=== PATIENT | female | born 1955 | race Caucasian/White ===

== ENCOUNTER 2023-04-17 09:22 | Emergency (ER) | payer MEDICARE, SELFPAY ==
[2023-04-17 09:27] VITALS: BP 135/90
[2023-04-17 10:05] LABS: % Basophils 0.8 % (0-2); % Eosinophils 2.1 % (0-6); % Immature Granulocytes 0.3 % (0-0.5); % Lymphocytes 17.3 % (20.5-51.1); % Monocytes 7.9 % (1.7-9.3); % Neutrophils 71.6 % (42.2-75.2); Absolute Basophils 0.1 10^3/uL (0-0.2); Absolute Eosinophils 0.2 10^3/uL (0-0.7); Absolute Lymphocytes 1.6 10^3/uL (1.2-3.4); Absolute Monocytes 0.7 10^3/uL (0.1-0.6); Absolute Neutrophils 6.4 10^3/uL (1.4-6.5); Hematocrit 44.7 % (37.0-47.0); Hemoglobin 15.6 g/dL (12.0-16.0); Mean Corp Hgb Conc. 34.9 g/dL (33.0-37.0); Mean Corpuscular Hgb 31.7 pg (27.0-31.0); Mean Corpuscular Volume 90.9 fL (81.0-99.0); Mean Platelet Volume 9.4 fL (7.4-10.4); Nucleated Red Blood Cells % 0 %; Platelet Count 244 10^3/uL (130-400); Red Blood Cell Count 4.92 10^6/uL (4.20-5.40); Red Cell Dist. Width 13.2 % (11.5-14.5)
--- NOTE | 2023-04-17 10:15 | ED.GENMED ---
History of Present Illness
General
Chief Complaint: Chest Pain
Source: patient
Time Seen by Provider: 04/17/23 09:36
Travel History
Have you had any contact with someone who has COVID-19?: No
Do you have any symptoms of coronavirus? Fever > 100 degrees, chills, cough, shortness of breath, sore throat, loss of taste or smell, muscle aches, or headache?: No
History of Present Illness
History of Present Illness:
68-year-old female with history hypertension hyperlipidemia and asthma presents complaining of mid chest pain now spreading to the right chest and right shoulder. This is made worse with deep breathing coughing and motion. No recent travel or
surgery. She denies any leg swelling or calf pain. This feels different than her typical asthma discomfort. She tried an inhaler however without relief. She tried Tylenol without significant relief. This is progressively gotten worse over 3
days. No associated fever. Of note she had COVID 2 months ago. No other complaints at this time
Past History
Past History
ED Past Medical History: Asthma, GERD, Hypercholesterolemia, Hypothyroidism, Psychiatric (Anxiety, depression) and Other (Sleep apnea, obesity, diverticulosis, IBS, arthritis, rosacea, anemia)
ED Past Surgical History: Gynecological, Orthopedic and Other (Right parotidectomy)
Social History
Tobacco: Non-smoker
Phy Exam
Physical Exam
Physical Exam:
General: Well-appearing female no acute respiratory distress
HEENT: Normocephalic atraumatic
Heart: Regular rate and rhythm
Lungs: Clear to auscultation bilaterally no wheezing
Musculoskeletal exam: No reproducible tenderness to the palpation of the anterior chest wall
Extremities: No cyanosis or edema calves are nontender
Scores
Heart Score for Chest Pain Patients
STEMI patient?: No
History: Slightly or Non-Suspicious
ECG: Normal
Age: >/= 65 years
Risk Factors: 1 or 2 Risk Factors
Troponin: </= Normal Limit
Heart Score for Chest Pain Patients: 3
Heart Score Risk: 2.5% MACE over next 6 weeks
Course
Orders/Labs/Results
Orders:
Orders
04/17/23 09:27
Electrocardiogram (*1) Urgent
Reason for Study: Chest Pain
EKG- Treatment ONCE
04/17/23 10:01
Complete Blood Count/With Diff Urgent
Comprehensive Metabolic Panel Urgent
D-Dimer Urgent
Lipase Urgent
Troponin I Urgent
04/17/23 10:25
CR Chest - 2 Views Urgent
Comment:
Reason For Exam: chest pain
04/17/23 10:26
Ketorolac [Toradol] 15 mg IV NOW STA
Abnormal Lab Results
04/17/23
10:01
MCH 31.7 H pg
(27.0-31.0)
Absolute Monos (auto) 0.7 H 10^3/uL
(0.1-0.6)
Lymphocytes % 17.3 L %
(20.5-51.1)
D-Dimer 0.60 H ug/mlFEU
(0.00-0.50)
Glucose 128 H mg/dl
(70-99)
04/17/23 10:01
04/17/23 10:01
Vital Signs
Initial and Last Documented VS:
Initial Vital Signs
Temp Pulse Resp BP Pulse Ox
97.7 F 68 16 135/90 98
04/17/23 09:27 04/17/23 09:27 04/17/23 09:27 04/17/23 09:27 04/17/23 09:27
Last Documented Vital Signs
Temp Pulse Resp BP Pulse Ox
97.7 F 64 22 124/70 96
04/17/23 09:27 04/17/23 12:30 04/17/23 12:30 04/17/23 12:00 04/17/23 12:30
MDM/Problems Addressed
Differential Diagnosis Includes:
Patient with chest chest discomfort. This is worse on the right side worse with motion and breathing. No significant PE risk factors. Not hypoxic not tachycardic. Question possible PE versus chest wall strain versus ACS. EKG pending. Will
screen with D-dimer. Currently stable
*Critical Care Note
Total Time (30-74mins, 75-104mins- exclusive of procedures): Not Applicable
Update Note
Update Note:
D-dimer within normal limits for age. Chest x-ray shows atelectasis but no pneumonia or rib fractures. No pneumothorax. Labs reviewed otherwise within normal limits including troponin. Cardiac workup negative. Do not suspect ACS at this point
or PE or dissection suspect more likely chest wall discomfort. She did receive some relief from Toradol. Recommended continued use of NSAIDs at home. Stable for discharge
ED Attending Note
-
Portions of this chart may have been created with voice recognition software.� Occasional wrong word or��sound alike� substitutions may have occurred due to the inherent limitations of voice recognition software.
Discharge Plan
Departure
Patient Disposition: Home (Routine Discharge)
Date of Disposition: 04/17/23
Time of Disposition: 13:43
Patient with high blood pressure during this ER visit?: No
Discharge Problem:
Acute chest wall pain
Instructions: Costochondritis (DC)
Prescriptions:
No Action
Advair 250 mcg/50 mcg
1 puff inhalation BID
Nasacort
1 spray intranasal QPM
Pro-Air Inhaler
2 puff inhalation PRN PRN (Reason: asthma)
acetaminophen 325 MG tablet
650 mg PO Q4HPRN PRN (Reason: mild pain/fever) 0RF
levothyroxine 25 MCG tablet
12.5 mcg PO DAILY AT 0700 0RF
rosuvastatin 5 MG tablet
5 mg PO QPM 0RF
fluticasone propion-salmeterol [Advair HFA] 1 PUFF HFA aerosol inhaler
2 puff inhalation R BID 0RF
fexofenadine [Tammie] 180 MG tablet
180 mg PO DAILY
omeprazole 20 MG capsule,delayed release(DR/EC)
20 mg PO BID
metoprolol succinate 25 mg tablet extended release 24 hr
25 mg PO DAILY Qty: 20 0RF
Referrals:
Radhames Woodson DO [Family Provider] -
Activity Restrictions/Additional Instructions:
Continue with Tylenol or ibuprofen sparingly if needed for pain. Avoid heavy lifting or twisting. Return if worse otherwise follow-up with your family doctor
Interventions
Interventions:
*ED COVID-19 Vaccine History Last Done: 04/17/23 09:27
ED- Cardiac Assessment Last Done: 04/17/23 10:05
[2023-04-17 10:19] LABS: ALT (SGPT) 21 U/L (0-35); AST (SGOT) 26 U/L (14-36); Albumin 4.3 g/dl (3.5-5.0); Alkaline Phosphatase 92 U/L (38-126); Blood Urea Nitrogen 10 mg/dl (7-17); Calcium 9.9 mg/dl (8.4-10.2); Carbon Dioxide 27 mmol/L (22-30); Chloride 107 mmol/L (98-107); Glucose 128 mg/dl (70-99); Lipase 100 U/L (23-300); Potassium 3.8 mmol/L (3.5-5.1); Sodium 138 mmol/L (135-145); Total Bilirubin 0.9 mg/dl (0.2-1.3); Total Protein 6.5 g/dl (6.3-8.2); eGFR > 60.00
[2023-04-17 10:31] LABS: Troponin I < 0.012 ng/ml
[2023-04-17] MEDS: TORADOL 15 MG IV (10:33)
[2023-04-17 10:47] VITALS: BP 126/74
[2023-04-17 11:00] VITALS: BP 124/70
[2023-04-17 12:00] VITALS: BP 124/70
[2023-04-17 13:00] VITALS: BP 126/70
== END 2023-04-17 13:51 | disposition home or self-care (01) ==
LOC: EMR 09:22
PROVIDERS: Physician Assistant; EMERGENCY PHYSICIAN Emergency Medicine; FAMILY PHYSICIAN Family Medicine
DX: R07.89 Other chest pain (principal); I10 Essential (primary) hypertension; E78.00 Pure hypercholesterolemia, unspecified; J45.909 Unspecified asthma, uncomplicated
CPT/HCPCS: 99285; 96374; 71046; 80053; 83690; 84484; 85025; 85379; 93005

== ENCOUNTER 2023-10-12 03:17 | Observation (INO) | payer MEDICARE, SELFPAY ==
[2023-10-12] VITALS (18 sets, daily range): BP systolic 108–145; BP diastolic 56–86; BMI 39.6; BMI 39.9; BMI 39.4
--- NOTE | 2023-10-12 00:33 | ED.GENMED ---
History of Present Illness
General
Chief Complaint: Breathing Problem
Source: patient
Exam Limitations: none
Time Seen by Provider: 10/12/23 00:28
History of Present Illness
History of Present Illness:
68-year-old female presents with shortness of breath. Some tightness in her chest. Symptoms for days. Slightly low oxygen saturations at home. No significant change with nebulizer treatment. No pleuritic pain no fever no cough
Past History
Past History
ED Past Medical History: Asthma, GERD, Hypercholesterolemia, Hypothyroidism, Psychiatric (Anxiety, depression) and Other (Sleep apnea, obesity, diverticulosis, IBS, arthritis, rosacea, anemia)
ED Past Surgical History: Gynecological, Orthopedic and Other (Right parotidectomy)
Social History
Tobacco: Non-smoker
Review of Systems
Review of Systems
All Other Systems: Not applicable
Constitutional: Denies fever or chills
Respiratory: Denies cough
Cardiac: Denies palpitations or syncope
Phy Exam
Physical Exam
Physical Exam:
GENERAL: Alert and oriented in no apparent distress
EYE: Orbits normal.
NECK: Supple, no significant adenopathy.
ENT: Pharynx without erythema
CARDIAC: Regular rate and rhythm without any obvious murmurs.
LUNGS: Clear breath sounds,normal. Mildly tachypneic with speaking but wearing a mask.
ABDOMEN: Soft, without focal tenderness or distention
NEUROLOGICAL: Alert and oriented , grossly non-focal
SKIN: Warm and dry, no rash or lesion, no discoloration, skin intact.
MUSCULOSKELETAL: No edema,no deformity.Good color
PSYCH: Normal and appropriate interaction.
Scores
Heart Failure Risk
Heart Failure Risk Score: Not Applicable
Course
Orders/Labs/Results
Orders:
Orders
10/12/23 00:29
EKG [Electrocardiogram (*1)] Urgent
Reason for Study: Shortness of Breath
EKG- Treatment ONCE
10/12/23 00:32
Cardiac Monitoring- Treatment ONCE
IV Insert/Care/Rem.- Treatment PRN
Ipratropium/Albuterol Sulfate [Duoneb] 3 ml INH R NOW STA
Pulse Ox/cont/shift [RESP] Stat
Quantity: 1
10/12/23 00:49
Basic Metabolic Panel Urgent
Complete Blood Count/With Diff Urgent
D-Dimer Urgent
NT-proBNP Urgent
Troponin I Urgent
10/12/23 01:30
CXR2 [CR Chest - 2 Views ] Urgent
Comment:
Reason For Exam: SOB
10/12/23 01:53
Dexamethasone Sod Phosphate [Decadron] 8 mg IV NOW STA
10/12/23 02:04
Albuterol Sulfate [Ventolin Nebules] 7.5 mg INH R NOW STA
10/12/23 02:33
Admit/Transfer Patient As Directed
Co-Sign Provider:
Level of Care: Observation services
Assign to:: Telemetry
Physician / Group: [email or web address]
Diagnosis: dyspnea, Hypoxic episode , Tighness of chest, Abn EKG , Mild Asthma flare
Reason for Telemetry: Chest Pain syndromes
Date to Stop Telemetry: 10/14/23
Time to Stop Telemetry: 11:00
Expected length of stay greater than two midnights?: Yes
PRN Pain Medication Management As Directed
May give lesser potent ordered pain med per pt: Yes
preference::
Protocol:: Medication orders for pain may be administered in a
manner that supports deferring to patient preference
when the pt is:
- Requesting an ordered lesser potent pain medication.
Least to most potent pain medications are defined
as: acetaminophen < NSAID < tramadol < opioids
(morphine, oxycodone, hydromorphone).
- Requesting a lesser dose of the same medication IF
ORDERED.
- Requesting a less intrusive route of administration
if both routes are prescribed by the provider (PO <
IV).
10/12/23 02:35
Code Status As Directed
Resuscitation Status: Full Code
10/12/23 03:33
Ipratropium/Albuterol Sulfate [Duoneb] 3 ml INH R Q4HPRN PRN
10/12/23 03:33
CARDIOLOGY CONSULT Routine
Consulting Provider: Alexandru Marie
Was physician already notified: No
Reason for consult: Dyspnea, tightness of chest, abn T wave invertion, Hypoxic episode
Consult Notification Routine
Specialty to Notify: Cardiology
Date consulting provider notified: 10/12/23
Time consulting provider notified: 08:09
Notified:: Provider
Comment: dionne johnson
Activity As Directed
Activity Level: With Assistance
Activity As Directed
Activity Level: With Assistance
Intake/ Output As Directed
Frequency: Per unit guidelines
Intake/ Output As Directed
Frequency: Per unit guidelines
Vital Signs As Directed
Frequency: Per unit guidelines
Vital Signs As Directed
Frequency: q4h
Weight As Directed
Frequency: Daily
Copd Education [RESP] Routine
Cpap [RESP] Routine
Patient to use own unit?: No
Set Pressure (cm H2O): 5
Instructions: HS
Pulse Ox/spot Check [RESP] Routine
Quantity: 1
Special Instructions: on admission and then every shift if on oxygen
DX Deep Vein Thrombosis Video Routine
10/12/23 04:07
Glycohemoglobin (HgbA1c) Routine
Troponin I Q6H
Comment: at admit & Q3H for 3 total including ED draws, obtain ECG with each level
10/12/23 05:56
Cardiovascular Evaluation IN AM
10/12/23 06:00
Electrocardiogram (*1) IN AM
Reason for Study: Chest Pain
Comment: at admission and Q3H for total of 3, to be done with each troponin
Levothyroxine [Synthroid] 12.5 mcg PO DAILY@0600
10/12/23 08:00
Fluticasone/Salmeterol 115/21 [Advair Hfa 115/21 Mcg Inhaler] 2 puff INH R BID
Ipratropium/Albuterol Sulfate [Duoneb] 3 ml INH R QID
Metoprolol Xl [Toprol Xl] 25 mg PO DAILY
10/12/23 09:38
Troponin I Q6H
Comment: at admit & Q3H for 3 total including ED draws, obtain ECG with each level
10/12/23 15:40
Troponin I Q6H
Comment: at admit & Q3H for 3 total including ED draws, obtain ECG with each level
10/12/23 18:00
Enoxaparin Sodium [Lovenox] 40 mg SC QPM
Rosuvastatin Calcium [Crestor] 5 mg PO QPM
10/14/23 11:00
DC Protocol for Telemetry ONCE
Abnormal Lab Results
10/12/23
00:49
Absolute Neuts (auto) 8.4 H 10^3/uL
(1.4-6.5)
Absolute Lymphs (auto) 0.8 L 10^3/uL
(1.2-3.4)
Neutrophils % 88.3 H %
(42.2-75.2)
Lymphocytes % 8.7 L %
(20.5-51.1)
Glucose 154 H mg/dl
(70-99)
Calcium 10.3 H mg/dl
(8.4-10.2)
10/12/23 00:49
10/12/23 00:49
Vital Signs
Initial and Last Documented VS:
Initial Vital Signs
Temp Pulse Resp BP Pulse Ox
98.1 F 60 26 111/85 95
10/12/23 00:18 10/12/23 00:18 10/12/23 00:18 10/12/23 00:18 10/12/23 00:18
Last Documented Vital Signs
Temp Pulse Resp BP Pulse Ox
98 F 62 18 122/66 95
10/13/23 07:45 10/13/23 09:01 10/13/23 07:45 10/13/23 09:01 10/13/23 09:00
MDM/Problems Addressed
Differential Diagnosis Includes:
Clear lungs short of breath. Doubt cardiac but cardiac testing to be done for completeness. Has had symptoms for days. Possibly at an asthma exacerbation however lungs are clear. To consider pulmonary emboli. Low suspicion. D-dimer pending.
Clinically not in heart failure.
*Radiology
Radiology exam reviewed: preliminary read by ED provider (Atelectasis left base)
*Pulse Oximetry
Patient hypoxic: yes
*EKG
Interpretation: abnormal
Comparison EKG: changes noted
Heart Rate: 59
Rate: bradycardiac
Rhythm: sinus
[place]: normal axis
Interval: normal interval
QRS Pattern: normal QRS
Ischemia: T-wave inversion
*Critical Care Note
Total Time (30-74mins, 75-104mins- exclusive of procedures): Not Applicable
Data Reviewed
Review of Other/Old Records Reveals: Labs, Records and Testing
Update Note
Update Note:
Patient with chest tightness shortness of breath. Does get hypoxic at rest at times. In addition has diffuse T wave changes that are new. Admission for further care
ED Attending Note
-
Portions of this chart may have been created with voice recognition software.� Occasional wrong word or��sound alike� substitutions may have occurred due to the inherent limitations of voice recognition software.
Discharge Plan
Departure
Patient Disposition: Admit
Date of Disposition: 10/12/23
Time of Disposition: 02:13
Presentation/result/management discussed w/ accepting MD/DO: Hospitalist
Discharge Problem:
Episodic hypoxia/dyspnea, History of asthma, New T wave changes
Interventions
Interventions:
*Risk Screen - Suicide Last Done: 10/12/23 00:59
*General Assessment Last Done: 10/12/23 00:59
*Neglect/Abuse Screening Last Done: 10/12/23 00:59
ED- Fall Risk Assessment Last Done: 10/12/23 00:59
*ED COVID-19 Vaccine History Last Done: 10/12/23 05:46
*Nursing Disposition Last Done: 10/12/23 16:55
ED- Cardiac Assessment Last Done: 10/12/23 00:57
ED- Pulmonary Assessment Last Done: 10/12/23 00:57
Discharge Date and Time
Discharge Date/Time: 10/12/23 16:55
[2023-10-12] MEDS: DUONEB 3 ML INH ×5 (00:51→20:11)
[2023-10-12 01:14] LABS: % Basophils 0.3 % (0-2); % Immature Granulocytes 0.2 % (0-0.5); % Lymphocytes 8.7 % (20.5-51.1); % Monocytes 2.5 % (1.7-9.3); % Neutrophils 88.3 % (42.2-75.2); Absolute Lymphocytes 0.8 10^3/uL (1.2-3.4); Absolute Monocytes 0.2 10^3/uL (0.1-0.6); Absolute Neutrophils 8.4 10^3/uL (1.4-6.5); Hematocrit 43.7 % (37.0-47.0); Hemoglobin 15.5 g/dL (12.0-16.0); Mean Corp Hgb Conc. 35.5 g/dL (33.0-37.0); Mean Corpuscular Hgb 30.9 pg (27.0-31.0); Mean Corpuscular Volume 87.2 fL (81.0-99.0); Mean Platelet Volume 9.4 fL (7.4-10.4); Nucleated Red Blood Cells % 0 %; Platelet Count 290 10^3/uL (130-400); Red Blood Cell Count 5.01 10^6/uL (4.20-5.40); Red Cell Dist. Width 13.2 % (11.5-14.5); White Blood Cell Count 9.5 10^3/uL (4.8-10.8)
[2023-10-12 01:24] LABS: D-Dimer 0.41 ug/mlFEU (0.00-0.50)
[2023-10-12 01:31] LABS: Blood Urea Nitrogen 12 mg/dl (7-17); Calcium 10.3 mg/dl (8.4-10.2); Carbon Dioxide 22 mmol/L (22-30); Chloride 107 mmol/L (98-107); Estimated Creatinine Clearance 74 ml/min; Glucose 154 mg/dl (70-99); Sodium 140 mmol/L (135-145); eGFR > 60.00
[2023-10-12 01:44] LABS: NT-proBNP 55.2 pg/ml; Troponin I < 0.012 ng/ml
[2023-10-12] MEDS: DECADRON 8 MG IV (02:19)
[2023-10-12] MEDS: VENTOLIN NEBULES 7.5 MG INH (02:19)
--- NOTE | 2023-10-12 02:29 | HPS.HSE ---
Family Physician
-
Family Physician:
Chief Complaint
-
SoB , tightness of chest
History of Present Illness
68F Obese , HX DEBORAH, Asthma , Anxiety seen at ER for SoB
SoB
- associated central chest pressure ; currently CP free
- no significant improvement o with Neb Tx
- Not a pleuritic character chest presure
- denied fever
- denied cough
Wear CPAP HS
Medical History
Past Medical History
Past Medical History: Reports Asthma, GERD, Hypercholesterolemia, Hypothyroidism, Psychiatric ((Anxiety, depression)) and Other (Sleep apnea, obesity, diverticulosis, IBS, arthritis, rosacea, anemia))
Past Surgical History: Reports Gynocological, Orthopedic and Other (Right parotidectomy))
Social History
Tobacco: Non-smoker
Alcohol: Occasional
Family History
Family History: Not pertinent
Allergies / Home Medications
Allergies reflects when Allergies were last updated in [employer].
Home Medications with original date entered in [employer]
Allergy/Medication List:
Allergies
Allergy/AdvReac Type Severity Reaction Status Date / Time
meperidine [From Demerol] Allergy 'severe Verified 10/12/23 00:17
nausea'
midazolam [From Versed] Allergy vomitting Verified 10/12/23 00:17
Penicillins Allergy Rash Verified 10/12/23 00:17
Sulfa (Sulfonamide Allergy Rash Verified 10/12/23 00:17
Antibiotics)
Home Medications
Advair 250 mcg/50 mcg 1 puff inhalation BID 09/27/18
Nasacort 1 spray intranasal QPM 09/27/18
Pro-Air Inhaler 2 puff inhalation PRN PRN asthma 09/27/18
acetaminophen 325 mg tablet 650 mg (2 x 325 mg) PO Q4HPRN PRN mild pain/fever 10/12/18
fluticasone propionate 115 mcg-salmeterol 21 mcg/actuation HFA inhaler (Advair HFA) 2 puff inhalation R BID 10/12/18
levothyroxine 25 mcg tablet 12.5 mcg (1/2 x 25 mcg) PO DAILY AT 0700 10/12/18
rosuvastatin 5 mg tablet 5 mg PO QPM 10/12/18
fexofenadine 180 mg tablet (Tammie) 180 mg PO DAILY 02/03/19
omeprazole 20 mg capsule,delayed release 20 mg PO BID 02/03/19
metoprolol succinate 25 mg tablet,extended release 24 hr 25 mg PO DAILY #20 tabs 03/11/23
Review of Systems
-
Constitutional: Reports No Symptoms
EENT: Reports No Symptoms
Respiratory: Reports Cough and Trouble Breathing
Cardiac: Reports Chest Pain (Tightness of chest )
Abdomen/GI: Reports No Symptoms
: Reports No Symptoms
Musculoskeletal: Reports No Symptoms
Skin: Reports No Symptoms
Neurological: Reports No Symptoms
Endocrine: Reports No Symptoms
Hematologic/Lymphatic: Reports No Symptoms
Psych: Reports No Symptoms
Physical Exam
Vital Signs
Vital Signs
Temp Pulse Resp BP Pulse Ox
98.1 F 85 13 127/73 95
10/12/23 00:18 10/12/23 01:00 10/12/23 01:00 10/12/23 00:56 10/12/23 01:30
Physical Exam
General: Well Developed, Well Nourished, No Apparent Distress and Conversant; No Respiratory Distress, Pain or Fever
HEENT: NormoCephalic and Anicteric
Respiratory: Non Labored Respirations; No Wheezes, Rales or Rhonchi
Cardiac: S1/S2, Regular Rhythm and Bradycardia (on BB ); No Murmur
Breast: Deferred by me
GI: Soft, Non Tender and Non Distended
Genito-urinary: Deferred by me
Musculoskeletal: No Edema
Skin: Warm
Neuro: AO x 3
Psych: Calm
Laboratory Results
-
10/12/23 00:49
10/12/23 00:49
Laboratory Results
Troponin I < 0.012 ng/ml 10/12/23 00:49
Data Reviewed
-
Diagnostic Radiology: Report Reviewed by me
Medical Tests (Nuc Med, Echo, EKG etc): Report Reviewed by me
Lab Data: Labs Reviewed by me
Impression/Plan
-
Reviewed VS: afebrile mildly tachypneic POx mid 90s , one episode of 89 on RA 95 % on 2 L
Data
nl CBC
nl CMP
NEG TPNI
pro BNP 55
EKG report
SINUS BRADYCARDIA WITH MARKED SINUS ARRHYTHMIA
LEFT AXIS DEVIATION
LOW VOLTAGE QRS
T WAVE ABNORMALITY, CONSIDER ANTERIOR ISCHEMIA
ABNORMAL ECG
WHEN COMPARED WITH ECG OF 17-APR-2023 09:28,
NONSPECIFIC T WAVE ABNORMALITY NOW EVIDENT IN INFERIOR LEADS
T WAVE INVERSION MORE EVIDENT IN ANTERIOR LEADS
CXR prelim read by ER attd: Atelectasis left base
ASSESSMENT & PLAN
Pending Rx reconciliation
Chest pressure : NEG 1st TPNI
EKG with new NOS abn T wave inversion
No prior HX CAD
- cont Metoprolol
- Trend TPNI q6h
- EKG in AM
- TLM monitor
- [facility] card consult
Dyspnea but sound like baseline
mild tachypnea,
one recorded episode of hypoxia 89 % on RA - NC 2L O2 95%
No bronchospasm on exam
- s/p IV Decadron 8mg at ER - will hold of further IV steroids for now
- Prelim CXR: Atelectasis
- cont OP INH
- Nebs PRN
- No indication for ABx
- Wean O2 as able : Goal above 94 %
HX DEBORAH
- cont CPAP HS
Hyperlipidemia
- cont [employer] TECH[employer]IST Statin
Hypothyroidism
- cont. A[employer] RESEARCH TECHNOLOGIST LT4
DVT Px: LMWH
Code: full
Obs TLM
[2023-10-12 04:45] LABS: Troponin I < 0.012 ng/ml
[2023-10-12 06:46] LABS: HDL Cholesterol 53 mg/dl; LDL Cholesterol, Calculated 86 mg/dl; Total Cholesterol 149 mg/dl (50-199); Triglyceride 54 mg/dl (10-149); Very Low Density Lipoprotein 10 mg/dl (0-30)
[2023-10-12] MEDS: SYNTHROID 12.5 MCG PO (07:29)
--- NOTE | 2023-10-12 07:35 | W.PN.HOSP.TC ---
Today's Communication/Plan
-
see AP
Assessment / Plan
Assessment / Plan
HPI: 68 yo F Obese, PMH DEBORAH on CPAP HS, Asthma, Anxiety; p/w SOB, associated with central chest pressure (improved).
A/P:
# Chest pressure, ?due to ACS
d-dimer negative
troponin so far negative
EKG noted new T wave inversion lat leads
Check echo
Cont Metoprolol
[facility] card consulted
# Dyspnea, ?related to ACS
# Acute hypoxic respiratory insufficiency on admission
placed on 2L NC, wean as able, pt not on home O2
d-dimer negative, proBNP negative
Check echo as above
check procal
s/p IV Decadron 8mg in ER- hold further steroid given no wheezing
CXR prelim read with Atelectasis, follow formal report
Cont outpt inhaler and Nebs PRN
# DEBORAH
cont CPAP HS
# Hyperlipidemia
cont RANGE MOUNTER Statin
# Hypothyroidism
cont RANGE MOUNTER Synthroid
DVT Px: LMWH
Code: full
Anticipated Discharge: Within 24 hours
Subjective/Interval History
-
Date of Service: October 12, 2023
Objective Data
-
Labs:
Laboratory Results
10/12/23
00:49
WBC 9.5
Hgb 15.5
Hct 43.7
Plt Count 290
Sodium 140
Potassium 4.0
Chloride 107
Carbon Dioxide 22
BUN 12
Creatinine 0.8
Glucose 154 H
Calcium 10.3 H
Vital Signs:
Vital Signs
Temp Pulse Resp BP Pulse Ox
36.7 C 65 18 109/67 92
10/12/23 00:18 10/12/23 07:00 10/12/23 07:00 10/12/23 07:00 10/12/23 07:00
Review of Systems
-
Cardiac: Reports Chest Pain
Physical Exam
-
General: Well Developed, Well Nourished, Comfortable, Respiratory Distress (mild) and Conversant
HEENT: Normocephalic, Atraumatic, Nose Appears Normal, Ears Appear Normal and Oxygen (2L NC)
Respiratory: Clear to Auscultation and Non Labored Respirations; Negative Wheezes, Crackles or Accessory Resp Muscle Use
Cardiac: Regular Rhythm and S1/S2
GI: Soft, Nontender, Nondistended and Normal Bowel Sounds
Skin: Warm and Dry
Neuro: Awake, Alert, Oriented and AO x 3
Psych: Calm and Intact Judgement/Insight
Data Reviewed
-
Labs: Labs Reviewed by me
[2023-10-12] MEDS: TOPROL XL 25 MG PO (08:21)
[2023-10-12] MEDS: ADVAIR HFA 115/21 MCG INHALER 2 PUFF INH ×2 (08:44→20:11)
--- NOTE | 2023-10-12 09:26 | CON.CAR ---
Addendum entered and electronically signed by Alexandru Marie MD 10/12/23 12:07:
I saw and examined the patient.
The [employer]'s note was reviewed and I agree with the note.
68-year-old woman with a history of asthma, hypertension hypercholesterolemia hypothyroidism GERD and DEBORAH who has had shortness of breath over the last 4 days initially mostly shortness of breath with exertion and also would feel like her chest was
tight symptoms would be relieved with rest. Last night symptoms became more constant with constant feeling of shortness of breath and felt like her chest was tight and was worse with deep inspiration. She reports she felt significantly better
after the breathing treatments given in the emergency department and is now comfortable on nasal cannula oxygen. Patient with no prior history of coronary artery disease. She has been followed by Dr. Jain most recent echo in March 2023 with
normal left ventricular function. Reportedly she has had a normal stress echo in the past although exact date and details regarding that or not clear. Patient currently in no distress. Faint wheeze at base on lung exam. Is an early systolic
murmur right upper sternal border. No significant edema. Significant component of her symptoms including chest discomfort appear to be pulmonary and may be related to exacerbation of asthma this goes along with the significant improvement with
treatment with nebulizers. Despite hours of chest sensation troponins are negative this would make coronary ischemia less likely
-Continue treatment of asthma exacerbation and optimization of pulmonary status as directed by primary team
-Monitor serial troponins
-Echocardiogram this admission
-Based on clinical course and troponins we will determine what additional evaluation for CAD may be indicated.
Original Note:
Consultation
Consultation Request
Date/Time Consultation Requested: 10/12/23332
Date/Time Consultation Performed: 10/12/23 0900
Requesting Provider: Dr. Goetz
Performing Provider: Shantelle LEDEZMA for Dr. Marie
Reason for Consultation: SOB, Chest pressure, abnormal EKG
Medical History
-
Chief Complaint: SOB, chest tightness
History of Present Illness:
68 y/o female with asthma, HTN, HLD, palpitations, hypothyroidism, obesity, GERD, anxiety, and DEBORAH on CPAP who is here for evaluation of SOB and chest tightness since last night around 930 when she was in bed. She was hypoxic to 89% and is now on O2
by NM. She feels improved after breathing treatments, as well as IV steroids. She is in no distress at the time of my assessment. She noticed the SOB and chest pressure with stairs over the past 3 days, but also notes chest pressure is worse to
palpation. She normally feels well going to the gym 3 x per week, as well as yoga. Had a normal stress echo in the past per Dr. Susy LOGAN note, but unclear timing. Records requested.
Past Medical History
Past Medical History: Asthma, GERD, HTN, Hypercholesterolemia, Hypothyroidism, Psychiatric (anxiety) and Other (DEBORAH on CPAP)
Social History
Tobacco: Non-Smoker
Alcohol: None
Family History
Family History: Early CAD (dad )
Allergies / Home Medications
Allergy/AdvReac Type Severity Reaction Status Date / Time
meperidine [From Demerol] Allergy 'severe Verified 10/12/23 00:17
nausea'
midazolam [From Versed] Allergy vomitting Verified 10/12/23 00:17
Penicillins Allergy Rash Verified 10/12/23 00:17
Sulfa (Sulfonamide Allergy Rash Verified 10/12/23 00:17
Antibiotics)
�Medication �Instructions �Recorded �Confirmed �Type
acetaminophen 325 mg tablet 650 mg (2 x 325 mg) PO Q4HPRN PRN 10/12/18 10/12/23 Rx
mild pain/fever
fluticasone propionate 115 2 puff inhalation R BID 10/12/18 10/12/23 Rx
mcg-salmeterol 21 mcg/actuation
HFA inhaler (Advair HFA)
levothyroxine 25 mcg tablet 12.5 mcg (1/2 x 25 mcg) PO DAILY 10/12/18 10/12/23 Rx
AT 0700
rosuvastatin 5 mg tablet 5 mg PO QPM 10/12/18 10/12/23 Rx
omeprazole 20 mg capsule,delayed 20 mg PO BIDPRN PRN GERD 02/03/19 10/12/23 History
release
metoprolol succinate 25 mg 25 mg PO DAILY #20 tabs 03/11/23 10/12/23 Rx
tablet,extended release 24 hr
calcium carbonate 500 mg PO DAILY 10/12/23 10/12/23 History
fexofenadine 180 mg tablet 180 mg PO HS 10/12/23 10/12/23 History
Review of Systems
-
History Source: Patient
All other systems: Negative unless noted
Respiratory: Trouble Breathing
Cardiac: Chest Pain
Physical Exam
Vital Signs
Temp Pulse Resp BP Pulse Ox
97.9 F 80 16 118/82 97
10/12/23 07:43 10/12/23 08:50 10/12/23 08:50 10/12/23 07:43 10/12/23 08:50
Lab Results
10/12/23 00:49
10/12/23 00:49
Troponin I < 0.012 ng/ml 10/12/23 04:07
Fai-C-Wasyaimzztm Pept 55.2 pg/ml 10/12/23 00:49
Physical Exam
General: Well Developed and No Apparent Distress
HEENT: Normocephalic and Anicteric
Respiratory: Wheezes (mild expiratory L base) and Other (on O2 by NC)
Cardiac: Regular Rhythm
Skin: Warm and Dry
Neuro: AO x 3
Psych: Calm
Impression / Plan
-
SOB, hypoxia, chest pressure:
-improved s/p breathing treatments per patient
-also s/p IV steroid
-on O2 by NM, since O2 sat reported at 89% on arrival
-trops normal so far. This is with constant chest discomfort since 9:30 PM, so do not suspect ACS at this time. Another troponin is pending.
-EKG's with nonspecific t wave abnormalities, which are not significantly changed to my review
-d-dimer and BNP WNL
-echo pending
-she takes a daily baby aspirin, which is not on her medlist- I will add back.
HTN:
-stable
-continue BB
Dyslipidemia:
-statin
DEBORAH:
-CPAP
GERD:
-on omeprazole PRN
Obesity:
-she is attempting to work on weight loss
Data Reviewed
-
EKG: Tracing Personally Visualized and interpreted (SB with SA 59 BPM, non specific t wave abnormalities)
Radiology: Image Personally Visualized and interpreted (CXR pending, but no sign of CHF to my review)
Medical Tests (Nuc Med, Echo etc): Report Reviewed by me (echo 03/27/23, Dr. Jain note: EF 60-65%, grade I DD, mild MR, aortic root and prox ascending aortic atherosclerosis)
Labs: Labs Reviewed by me
[2023-10-12] MEDS: LOW STRENGTH ASPIRIN 81 MG PO (10:20)
[2023-10-12 10:37] LABS: Troponin I < 0.012 ng/ml
[2023-10-12 11:03] LABS: Procalcitonin < 0.05 ng/ml (0.0-0.25)
--- NOTE | 2023-10-12 12:56 | PTCARENOTE ---
O2 weaned off. 95% room air.
[2023-10-12 16:16] LABS: Troponin I < 0.012 ng/ml
[2023-10-12] MEDS: CRESTOR 5 MG PO (17:55)
[2023-10-12] MEDS: LOVENOX 40 MG SC (17:55)
[2023-10-13 03:30] VITALS: BP 118/61
[2023-10-13] MEDS: SYNTHROID 12.5 MCG PO (05:57)
[2023-10-13 06:00] VITALS: BMI 39.4
[2023-10-13] MEDS: ADVAIR HFA 115/21 MCG INHALER 2 PUFF INH (07:19)
[2023-10-13] MEDS: DUONEB 3 ML INH (07:19)
[2023-10-13 07:20] LABS: % Basophils 0.5 % (0-2); % Immature Granulocytes 0.2 % (0-0.5); % Lymphocytes 19.6 % (20.5-51.1); % Monocytes 6.8 % (1.7-9.3); % Neutrophils 72.9 % (42.2-75.2); Absolute Basophils 0.1 10^3/uL (0-0.2); Absolute Lymphocytes 2.1 10^3/uL (1.2-3.4); Absolute Monocytes 0.7 10^3/uL (0.1-0.6); Absolute Neutrophils 7.7 10^3/uL (1.4-6.5); Hematocrit 41.9 % (37.0-47.0); Hemoglobin 14.5 g/dL (12.0-16.0); Mean Corp Hgb Conc. 34.6 g/dL (33.0-37.0); Mean Corpuscular Hgb 30.9 pg (27.0-31.0); Mean Corpuscular Volume 89.1 fL (81.0-99.0); Mean Platelet Volume 9.8 fL (7.4-10.4); Nucleated Red Blood Cells % 0 %; Platelet Count 257 10^3/uL (130-400); Red Cell Dist. Width 13.5 % (11.5-14.5); White Blood Cell Count 10.6 10^3/uL (4.8-10.8)
[2023-10-13 07:45] VITALS: BP 122/66
[2023-10-13 07:48] LABS: Blood Urea Nitrogen 19 mg/dl (7-17); Calcium 9.7 mg/dl (8.4-10.2); Carbon Dioxide 24 mmol/L (22-30); Chloride 105 mmol/L (98-107); Estimated Creatinine Clearance 74 ml/min; Glucose 93 mg/dl (70-99); Magnesium 2.1 mg/dl (1.6-2.3); Sodium 136 mmol/L (135-145); eGFR > 60.00
[2023-10-13] MEDS: TOPROL XL 25 MG PO (09:01)
[2023-10-13] MEDS: LOW STRENGTH ASPIRIN 81 MG PO (09:02)
--- NOTE | 2023-10-13 10:19 | W.PN.HOSP.TC ---
Addendum entered and electronically signed by Ralph Gonzalez MD 10/13/23 14:01:
[id number]
Original Note:
Today's Communication/Plan
-
albuterol prn
continue advair outpatient
can dc on nebulizers as needed
f/u pcp, pulmonary, cardiology outpatient
can continue asa 81mg for now
Assessment / Plan
Assessment / Plan
HPI: 68 yo F Obese, PMH DEBORAH on CPAP HS, Asthma, Anxiety; p/w SOB, associated with central chest pressure (improved).
A/P:
# Chest pressure,
#Dyspnea
� Patient believes this is due to hypersensitivity in setting of new painting in her room causing asthma exacerbation
� Patient's symptoms improving without any aggressive intervention
� Echo with no gross abnormality, D-dimer negative
� Dopplers negative
� Troponins negative, no significant findings on imaging, proBNP 55
-EKG noted new T wave inversion lat leads
�Continue Advair outpatient
� Follow-up pulmonary outpatient follow-up
� No wheezing on examination, no need for
� Albuterol as needed on discharge, also have given nebulizers
�Cardiology outpatient
# Hypoxia
� Resolved on its own
� Positive secondary atelectasis versus previous
� See plan above
� No evidence of pneumonia, low evidence for pulmonary embolism
� See asthma plan above
�Follow-up pulmonary outpatient
# DEBORAH
cont CPAP HS
# Hyperlipidemia
cont HAND SUTURE WINDER Statin
# Hypothyroidism
cont HAND SUTURE WINDER Synthroid
DVT Px: LMWH
Code: full
More than 30 minutes spent in discharge including
Final examination of the patient
Summarizing hospital stay
Instructions for continuing care to all relevant caregivers
Preparation of discharge records, prescriptions, and referral forms
Total time spent (35 in minutes):
Anticipated Discharge: Today
Subjective/Interval History
-
Date of Service: October 13, 2023
Patient symptoms improved
Objective Data
-
Labs:
Laboratory Results
10/13/23
06:32
WBC 10.6
Hgb 14.5
Hct 41.9
Plt Count 257
Sodium 136
Potassium 4.0
Chloride 105
Carbon Dioxide 24
BUN 19 H
Creatinine 0.8
Glucose 93
Calcium 9.7
Vital Signs:
Vital Signs
Temp Pulse Resp BP Pulse Ox
98 F 62 18 122/66 95
10/13/23 07:45 10/13/23 09:01 10/13/23 07:45 10/13/23 09:01 10/13/23 07:45
I&O
10/12/23 10/13/23 10/14/23
06:59 06:59 06:59
Output Total 1200 / 1200
Balance -1200 / -1200
Review of Systems
-
History Source: Patient
All other systems: Not reviewed unless documented
Physical Exam
-
General: Well Developed, Well Nourished, Comfortable, Respiratory Distress (mild) and Conversant
HEENT: Normocephalic, Atraumatic, Nose Appears Normal, Ears Appear Normal and Oxygen (2L NC)
Respiratory: Clear to Auscultation and Non Labored Respirations; Negative Wheezes, Crackles or Accessory Resp Muscle Use
Cardiac: Regular Rhythm and S1/S2
GI: Soft, Nontender, Nondistended and Normal Bowel Sounds
Skin: Warm and Dry
Neuro: Awake, Alert, Oriented and AO x 3
Psych: Calm and Intact Judgement/Insight
Data Reviewed
-
Diagnostic Radiology: Image personally visualized and interpreted and Report Reviewed by me
Ultrasound: Report Reviewed by me
Medical Tests (Nuc Med, Echo etc): Image personally visualized and interpreted and Report Reviewed by me
Labs: Labs Reviewed by me
--- NOTE | 2023-10-13 10:24 | W.PN.CD ---
Today's Communication / Plan
-
EKG, echo, troponin unremarkable
no additional cardiac testing recommended
please call us with additional questions
Impression / Plan
-
SOB, hypoxia, chest pressure: suspect pulmonary etiology
-improved s/p breathing treatments per patient
-also s/p IV steroid
-EKG, echo, troponin unremarkable
-no additional cardiac testing recommended
HTN:
-stable
-continue BB
Dyslipidemia:
-statin
DEBORAH:
-CPAP
GERD:
-on omeprazole PRN
Obesity:
-she is attempting to work on weight loss
Physical Exam
Vital Signs/Labs
Vital Signs
Temp Pulse Resp BP Pulse Ox
98 F 62 18 122/66 95
10/13/23 07:45 10/13/23 09:01 10/13/23 07:45 10/13/23 09:01 10/13/23 07:45
10/12/23 10/13/23 10/14/23
06:59 06:59 06:59
Actual Weight 101.4 kg 100.868 kg
10/13/23 06:32
10/13/23 06:32
Magnesium 2.1 mg/dl (1.6-2.3) 10/13/23 06:32
Triglycerides 54 mg/dl (10-149) 10/12/23 05:56
LDL Cholesterol, Calc 86 mg/dl 10/12/23 05:56
VLDL Cholesterol, Calc 10 mg/dl (0-30) 10/12/23 05:56
HDL Cholesterol 53 mg/dl 10/12/23 05:56
10/12/23
00:49
Sjh-B-Kbcledsdybk Pept 55.2
LAB Results
10/12/23 10/12/23 10/12/23
00:49 04:07 09:38
Troponin I < 0.012 < 0.012 < 0.012
10/12/23 10/12/23
15:40 21:33
Troponin I < 0.012 Cancelled
Physical Exam
Constitutional: No acute distress and Comfortable
EENT: Moist mucous membranes
Cardiovascular: Rhythm & rate is regular, Pedal edema is absent, JVD pressure is normal and Systolic murmur absent
Respiratory: Respiratory effort normal
GI: Soft and Distention absent
Neuro/Psych: AO x 3
Data Reviewed
-
Date of Service: October 13, 2023
EKG: Ordered by me (Tele: SR/SB 40s-60s)
Echo: Report Reviewed by me
Labs: Labs Reviewed by me
--- NOTE | 2023-10-13 10:25 | W.DS.TRANS ---
DC Summary - Optometric Assistant
-
Discharge Instructions:
Discharge Diagnosis/Procedures Dyspnea
Diet Low Fat,Low Cholesterol
Activity As tolerated
Instructions:
Stand-Alone Forms:
Changes to Home Medications: Yes
Discharge Medications:
DC Medications w/original date entered in [facility]
acetaminophen 325 mg tablet 650 mg (2 x 325 mg) PO Q4HPRN PRN mild pain/fever 10/12/18
fluticasone propionate 115 mcg-salmeterol 21 mcg/actuation HFA inhaler (Advair HFA) 2 puff inhalation R BID 10/12/18
levothyroxine 25 mcg tablet 12.5 mcg (1/2 x 25 mcg) PO DAILY AT 0700 10/12/18
rosuvastatin 5 mg tablet 5 mg PO QPM 10/12/18
omeprazole 20 mg capsule,delayed release 20 mg PO BIDPRN PRN GERD 02/03/19
metoprolol succinate 25 mg tablet,extended release 24 hr 25 mg PO DAILY #20 tabs 03/11/23
calcium carbonate 500 mg PO DAILY Supplement 10/12/23
fexofenadine 180 mg tablet 180 mg PO HS Allergies 10/12/23
albuterol sulfate 90 mcg/actuation aerosol inhaler (Ventolin HFA) 2 puff inhalation Q6H PRN shortness of breath or wheezing #8.5 grams 10/13/23
aspirin 81 mg chewable tablet 81 mg PO DAILY #90 tabs 10/13/23
ipratropium 0.5 mg-albuterol 3 mg (2.5 mg base)/3 mL nebulization soln 3 ml inhalation R Q4HPRN PRN shortness of breath/wheezing #180 mL 10/13/23
Home Medication Changes
albuterol sulfate 90 mcg/actuation aerosol inhaler (Ventolin HFA) 2 puff inhalation Q6H PRN shortness of breath or wheezing #8.5 grams 10/13/23
aspirin 81 mg chewable tablet 81 mg PO DAILY #90 tabs 10/13/23
ipratropium 0.5 mg-albuterol 3 mg (2.5 mg base)/3 mL nebulization soln 3 ml inhalation R Q4HPRN PRN shortness of breath/wheezing #180 mL 10/13/23
Pending Results: No
--- NOTE | 2023-10-13 11:06 | CM ---
CM met with Annette at bedside today to complete IA. She lives with her in a 2 story home with 2 entry steps. Pt is (I) amb and adls, drove herself to the hospital and will drive herself home. No needs identified.
Plan: Discharge to home with no needs.
PCP: Radhames Woodson
Pharmacy: [facility]
[2023-10-13] MEDS: DUONEB INH (11:13)
== END 2023-10-13 13:23 | disposition home or self-care (01) ==
LOC: 4 EAST ACU 03:17
PROVIDERS: Internal Medicine; ADMITTING PHYSICIAN Internal Medicine; ATTENDING PHYSICIAN Internal Medicine; CONSULT PHYSICIAN Internal Medicine Cardiovascular Disease; EMERGENCY PHYSICIAN Emergency Medicine; FAMILY PHYSICIAN Family Medicine
DX: R06.00 Dyspnea, unspecified (principal); R07.89 Other chest pain; J45.909 Unspecified asthma, uncomplicated; E66.9 Obesity, unspecified; K58.9 Irritable bowel syndrome, unspecified; J98.11 Atelectasis; F41.9 Anxiety disorder, unspecified; E78.5 Hyperlipidemia, unspecified; R94.31 Abnormal electrocardiogram [ECG] [EKG]; I70.0 Atherosclerosis of aorta; F32.A Depression, unspecified; R06.89 Other abnormalities of breathing; I11.9 Hypertensive heart disease without heart failure; R09.02 Hypoxemia; E78.00 Pure hypercholesterolemia, unspecified; G47.33 Obstructive sleep apnea (adult) (pediatric); E03.9 Hypothyroidism, unspecified; K21.9 Gastro-esophageal reflux disease without esophagitis; Z68.39 Body mass index [BMI] 39.0-39.9, adult; Z87.19 Personal history of other diseases of the digestive system; Z88.5 Allergy status to narcotic agent; Z88.2 Allergy status to sulfonamides; Z88.0 Allergy status to penicillin; Z79.51 Long term (current) use of inhaled steroids; Z79.890 Hormone replacement therapy; Z79.82 Long term (current) use of aspirin
CPT/HCPCS: 71046; 80048; 80061; 83036; 83735; 83880; 84145; 84484; 85025; 85379; 93005; 93306; 93970; 94640; 94660; 96374; 99285; G0378

== ENCOUNTER 2025-01-09 15:59 | Observation (INO) | payer MEDICARE, SELFPAY ==
[2025-01-09] VITALS (10 sets, daily range): BP systolic 104–155; BP diastolic 60–91; BMI 40.2; BMI 38.6
--- NOTE | 2025-01-09 10:19 | ED.GENMED ---
History of Present Illness
<Clark Kowalski PA-C - Last Filed: 01/09/25 14:51>
General
Chief Complaint: Chest Problem
Time Seen by Provider: 01/09/25 10:02
History of Present Illness
History of Present Illness:
69-year-old female with history of asthma, hypertension, hyperlipidemia, hypothyroidism presents to the emergency department for evaluation of exertional chest pressure and shortness of breath that has been worsening over the past week now with
symptoms at rest. She states she began feeling like this in October during and after having COVID-19 however symptoms have not resolved. She denies fevers, night sweats, coughing, or leg swelling. Describes sensation of being unable to take a full
breath. No pleuritic pain. No prior personal history of CAD, does have a strong family history of CAD. Non-smoker
Past History
<Clark Kowalski PA-C - Last Filed: 01/09/25 14:51>
Past History
ED Past Medical History: Asthma, GERD, Hypercholesterolemia, Hypothyroidism, Psychiatric (Anxiety, depression) and Other (Sleep apnea, obesity, diverticulosis, IBS, arthritis, rosacea, anemia)
ED Past Surgical History: Gynecological, Orthopedic and Other (Right parotidectomy)
Social History
Tobacco: Non-smoker
Review of Systems
<Clark Kowalski PA-C - Last Filed: 01/09/25 14:51>
Review of Systems
Allergies reviewed?: Yes
All Other Systems: ROS reviewed and negative except as documented in HPI and ROS
Phy Exam
<ANGELA Ibrahim Last Filed: 01/09/25 14:51>
Physical Exam
Physical Exam:
GEN: Well appearing, NAD, WDWN
Eyes: PERRLA, EOMs intact, no scleral icterus
HENT: NCAT, oral mucosa moist, no JVD, no cervical adenopathy.
Lungs: CTAB, no wheezes, rales, rhonchi, normal chest wall excursion
Cardiac: RRR, no M/R/G, no peripheral edema. Radial pulses 2+ bilat
Abdomen: S, NT, ND, NABS, no masses or hepatosplenomegaly
Neuro: AO x 3
MSK: No gross deformity or ecchymosis. No edema. No digital clubbing
Skin: No rashes, petechiae. Normal color, no pallor or jaundice.
Psych: Calm, cooperative, proper hygiene
Course
<Clark Kowalski PA-C - Last Filed: 01/09/25 14:51>
Orders/Labs/Results
Orders:
Orders
01/09/25 09:16
EKG [Electrocardiogram (*1)] Urgent
Reason for Study: Chest Pain
EKG- Treatment ONCE
01/09/25 10:18
CR Chest - 2 Views Urgent
Comment:
Reason For Exam: NUÑEZ, chest tightness
01/09/25 10:24
Complete Blood Count/With Diff Urgent
Comprehensive Metabolic Panel Urgent
NT-proBNP Urgent
Troponin I Urgent
01/09/25 11:16
Consult Cardiology [CARDIOLOGY CONSULT] Urgent
Consulting Provider: Zhou Francisco
Was physician already notified: Yes
Reason for consult: chest pain, saw CBC last year
01/09/25 11:29
Aspirin Chewable [Low Strength Aspirin] 324 mg PO NOW STA
01/09/25 12:11
EKG- Treatment ONCE
01/09/25 13:30
Electrocardiogram (*1) Routine
Reason for Study: Chest Pain
01/09/25 13:46
Troponin I Routine
01/09/25 13:55
Aspirin Chewable [Low Strength Aspirin] 324 mg .ROUTE .STK-MED ONE
Abnormal Lab Results
01/09/25
10:24
MCH 31.1 H pg
(27.0-31.0)
Absolute Monos (auto) 0.7 H 10^3/uL
(0.1-0.6)
Monocytes % 9.9 H %
(1.7-9.3)
Glucose 103 H mg/dl
(70-99)
01/09/25 10:24
01/09/25 10:24
Vital Signs
Initial and Last Documented VS:
Initial Vital Signs
Temp Pulse Resp BP Pulse Ox
97.5 F 56 20 155/78 97
01/09/25 09:16 01/09/25 09:16 01/09/25 09:16 01/09/25 09:16 01/09/25 09:16
Last Documented Vital Signs
Temp Pulse Resp BP Pulse Ox
97.5 F 62 15 108/78 100
01/09/25 09:16 01/09/25 13:45 01/09/25 13:45 01/09/25 13:45 01/09/25 13:49
<Darell Bailey MD - Last Filed: 01/09/25 12:49>
Orders/Labs/Results
Orders:
Orders
01/09/25 09:16
EKG [Electrocardiogram (*1)] Urgent
Reason for Study: Chest Pain
EKG- Treatment ONCE
01/09/25 10:18
CR Chest - 2 Views Urgent
Comment:
Reason For Exam: NUÑEZ, chest tightness
01/09/25 10:24
Complete Blood Count/With Diff Urgent
Comprehensive Metabolic Panel Urgent
NT-proBNP Urgent
Troponin I Urgent
01/09/25 11:16
Consult Cardiology [CARDIOLOGY CONSULT] Urgent
Consulting Provider: Zhou Francisco
Was physician already notified: Yes
Reason for consult: chest pain, saw CBC last year
01/09/25 11:29
Aspirin Chewable [Low Strength Aspirin] 324 mg PO NOW STA
01/09/25 12:11
EKG- Treatment ONCE
01/09/25 13:30
Electrocardiogram (*1) Routine
Reason for Study: Chest Pain
01/09/25 13:46
Troponin I Routine
01/09/25 13:55
Aspirin Chewable [Low Strength Aspirin] 324 mg .ROUTE .STK-MED ONE
Abnormal Lab Results
01/09/25
10:24
MCH 31.1 H pg
(27.0-31.0)
Absolute Monos (auto) 0.7 H 10^3/uL
(0.1-0.6)
Monocytes % 9.9 H %
(1.7-9.3)
Glucose 103 H mg/dl
(70-99)
01/09/25 10:24
01/09/25 10:24
Vital Signs
Initial and Last Documented VS:
Initial Vital Signs
Temp Pulse Resp BP Pulse Ox
97.5 F 56 20 155/78 97
01/09/25 09:16 01/09/25 09:16 01/09/25 09:16 01/09/25 09:16 01/09/25 09:16
Last Documented Vital Signs
Temp Pulse Resp BP Pulse Ox
97.5 F 62 15 108/78 100
01/09/25 09:16 01/09/25 13:45 01/09/25 13:45 01/09/25 13:45 01/09/25 13:49
<Clark Kowalski PA-C - Last Filed: 01/09/25 14:51>
MDM/Problems Addressed
MDM/Problems Addressed:
Patient progressively worsening symptoms, cardiology ED and plan to catheterize the patient during hospitalization. Will be admitted to the hospitalist service, no heparin initiated given negative troponins
<Clark Kowalski PA-C - Last Filed: 01/09/25 14:51>
Comment
Comment:
EKG shows sinus pericardia rate [address] changes, comparable to EKG from September 2023 with exception of currently increased T wave inversion in V2
*Pulse Oximetry
SaO2: 97
Oxygen Mode of Delivery: Room air
Patient hypoxic: no
*Critical Care Note
Total Time (30-74mins, 75-104mins- exclusive of procedures): Not Applicable
<Clark Kowalski PA-C - Last Filed: 01/09/25 14:51>
Update Note
Update Note:
Repeat trop negative, awaiting cardiology consultation
ED Attending Note
<Clark Kowalski PA-C - Last Filed: 01/09/25 14:51>
-
Portions of this chart may have been created with voice recognition software.� Occasional wrong word or��sound alike� substitutions may have occurred due to the inherent limitations of voice recognition software.
<Darell Bailey MD - Last Filed: 01/09/25 12:49>
ED Attending Note
Patient seen and examined by attending physician: Yes
I performed the substantive portion of visit, reviewed & personally made and approve the management plan that is documented in note by myself or SAM.: Yes
ED Attending Note:
69-year-old female progressive chest pressure and shortness of breath mostly with exertion over the last few weeks. Does not feel like it is her asthma. Also has had a few episodes at rest. Currently asymptomatic. Clearly exertional. Moderate
cardiac risk factors.
Exam patient is nontoxic in no distress. Lungs are clear and equal. Heart regular rate and rhythm. Abdomen soft and nontender. No liver or spleen no rebound or guarding. Warm and dry. Perfusing well.
Patient is describing some concerning symptoms for exercise-induced angina and now angina at rest. Warrants cardiac evaluation
Discharge Plan
Departure
Patient Disposition: Admit
Date of Disposition: 01/09/25
Time of Disposition: 14:49
Admit to: Telemetry
Presentation/result/management discussed w/ accepting MD/DO: Hospitalist
Discharge Problem:
Angina pectoris, unstable
Prescriptions:
No Action
acetaminophen 325 MG tablet
650 mg PO Q4HPRN PRN (Reason: mild pain/fever) 0RF
levothyroxine 25 MCG tablet
12.5 mcg PO DAILY AT 0700 0RF
rosuvastatin 5 MG tablet
5 mg PO QPM 0RF
fluticasone propion-salmeterol [Advair HFA] 1 PUFF HFA aerosol inhaler
2 puff inhalation R BID 0RF
omeprazole 20 MG capsule,delayed release(DR/EC)
20 mg PO BIDPRN PRN (Reason: GERD)
metoprolol succinate 25 mg tablet extended release 24 hr
25 mg PO DAILY Qty: 20 0RF
fexofenadine 180 mg Tablet
180 mg PO HS
calcium carbonate 500 mg calcium (1,250 mg) Tablet
500 mg PO DAILY
ipratropium-albuterol 0.5 mg-3 mg(2.5 mg base)/3 mL Solution For Nebulization
3 ml inhalation R Q4HPRN PRN (Reason: shortness of breath/wheezing) Qty: 180 0RF
aspirin 81 mg Tablet,Chewable
81 mg PO DAILY Qty: 90 0RF
albuterol sulfate [Ventolin HFA] 90 mcg/actuation HFA aerosol inhaler
2 puff inhalation Q6H PRN (Reason: shortness of breath or wheezing) Qty: 8.5 0RF
Referrals:
Radhames Woodson DO [Family Provider, Family Practice]
Interventions
Interventions:
*Risk Screen - Suicide Last Done: 01/09/25 09:20
*General Assessment Last Done: 01/09/25 13:52
*Neglect/Abuse Screening Last Done: 01/09/25 09:20
*ED- Fall Risk Assessment Last Done: 01/09/25 10:27
*ED COVID-19 Vaccine History Last Done: 01/09/25 10:27
*ED Influenza Vaccine History Last Done: 01/09/25 10:27
ED- Cardiac Assessment Last Done: 01/09/25 13:49
ED- Pulmonary Assessment Last Done: 01/09/25 13:49
Discharge Date and Time
Print Language: CENTRAL AFRICAN
[2025-01-09 10:36] LABS: Hematocrit 46.0 % (37.0-47.0); Hemoglobin 15.5 g/dL (12.0-16.0); Mean Corp Hgb Conc. 33.7 g/dL (33.0-37.0); Mean Corpuscular Volume 92.2 fL (81.0-99.0); Nucleated Red Blood Cells % 0 %; Platelet Count 235 10^3/uL (130-400); Red Cell Dist. Width 13.6 % (11.5-14.5)
[2025-01-09 10:57] LABS: ALT (SGPT) 24 U/L (0-35); AST (SGOT) 25 U/L (14-36); Albumin 4.1 g/dl (3.5-5.0); Alkaline Phosphatase 69 U/L (38-126); Blood Urea Nitrogen 14 mg/dl (7-17); Calcium 9.9 mg/dl (8.4-10.2); Carbon Dioxide 28 mmol/L (22-30); Chloride 107 mmol/L (98-107); Estimated Creatinine Clearance 74 ml/min; Glucose 103 mg/dl (70-99); Potassium 3.9 mmol/L (3.5-5.1); Sodium 137 mmol/L (135-145); Total Protein 6.5 g/dl (6.3-8.2); eGFR > 60.00
[2025-01-09 11:09] LABS: Troponin I 0.012 ng/ml
[2025-01-09] MEDS: LOW STRENGTH ASPIRIN 324 MG PO (13:55)
[2025-01-09 14:24] LABS: Troponin I < 0.012 ng/ml
--- NOTE | 2025-01-09 14:51 | HPS.HSE ---
Family Physician
-
Family Physician: Radhames Woodson
Chief Complaint
-
exertional chest pressure and shortness of breath
History of Present Illness
Patient is a 69-year-old female with past medical history of hypercholesterolemia, hypothyroidism, asthma, GERD, anemia and anxiety/depression who presented to [facility] ED for evaluation of exertional chest pressure and shortness of breath. Patient
reports that she has chdst pressure/tightness and shortness of breath with intermittent associated nausea for the past week with a significant increase in the last 2 days. She states that she has had some discomfort at rest but is mostly when
exertional. Denies fevers, chills, cough, vomiting or diarrhea.
Medical History
Past Medical History
Past Medical History: Reports Other
Additional Past Medical History:
asthma
GERD
hypercholesterolemia
hypothyroidism
anxiety/depression
sleep apnea
obesity
diverticulosis
IBS
arthritis
rosacea
anemia
Past Surgical History: Reports Other
Additional Past Surgical History:
Right parotidectomy
Hysterectomy, radical 1987
RT KNEE REPLACEMENT 10/2020
LT KNEE REPLACEMENT 2014
Social History
Tobacco: Non-smoker
Alcohol: None
Drug: None
Personal:
Living: With Family
Employment: Retired
Family History
Family History: Not pertinent
Allergies / Home Medications
Allergies reflects when Allergies were last updated in [facility].
Home Medications with original date entered in [facility]
Allergy/Medication List:
Allergies
Allergy/AdvReac Type Severity Reaction Status Date / Time
meperidine (From Demerol) Allergy 'severe Verified 01/09/25 09:21
nausea'
midazolam (From Versed) Allergy vomitting Verified 01/09/25 09:21
Penicillins Allergy Rash Verified 01/09/25 09:21
Sulfa (Sulfonamide Allergy Rash Verified 01/09/25 09:21
Antibiotics)
Home Medications
fluticasone propionate 115 mcg-salmeterol 21 mcg/actuation HFA inhaler (Advair HFA) 2 puff inhalation R BID 10/12/18
rosuvastatin 5 mg tablet 5 mg PO QPM 10/12/18
omeprazole 20 mg capsule,delayed release 20 mg PO DAILY 02/03/19
metoprolol succinate 25 mg tablet,extended release 24 hr 25 mg PO DAILY #20 tabs 03/11/23
calcium carbonate 500 mg PO NOON Supplement 10/12/23
albuterol sulfate 90 mcg/actuation aerosol inhaler (Ventolin HFA) 2 puff inhalation R Q6HPRN PRN shortness of breath or wheezing 01/09/25
aspirin 81 mg chewable tablet 81 mg PO QPM 01/09/25
cholecalciferol (vitamin D3) 25 mcg (1,000 unit) tablet 75 mcg PO NOON 01/09/25
levocetirizine 5 mg tablet (Xyzal) 10 mg PO QPM 01/09/25
levothyroxine 25 mcg tablet 12.5 mcg PO DAILY 01/09/25
vitamin E 268 mg (400 unit) capsule 268 mg PO NOON 01/09/25
Review of Systems
-
History Source: Patient
Constitutional: Denies Fever or Chills
EENT: Denies Sore Throat
Respiratory: Denies Cough or Trouble Breathing
Cardiac: Reports Chest Pain; Denies Diaphoresis, Palpitations or Syncope
Abdomen/GI: Reports Nausea; Denies Abdominal Pain, Vomiting or Diarrhea
: Denies Dysuria, Frequency or Urgency
Musculoskeletal: Denies Joint Pain or Joint Swelling
Skin: Denies Rash
Neurological: Denies Dizzy, Headache, Weakness or Numbness
Physical Exam
Vital Signs
Vital Signs
Temp Pulse Resp BP Pulse Ox
97.5 F 62 15 108/78 100
01/09/25 09:16 01/09/25 13:45 01/09/25 13:45 01/09/25 13:45 01/09/25 13:49
Physical Exam
General: Well Developed, Well Nourished, No Apparent Distress, Comfortable, Conversant and Obese
HEENT: NormoCephalic, Moist mucous membranes, PERRLA, Nose Appears Normal and Ears Appear Normal
Respiratory: Clear and Non Labored Respirations; No Wheezes, Rales or Rhonchi
Cardiac: S1/S2 and Regular Rhythm; No Murmur or Peripheral Edema
GI: Soft, Non Tender, Non Distended and Normal Bowel Sounds
Musculoskeletal: No Clubbing, No Cyanosis and No Edema
Skin: Warm and IV/Catheter Site
Neuro: Awake and AO x 3
Psych: Calm and Intact Judgment/Insight
Laboratory Results
-
01/09/25 10:24
01/09/25 10:24
Laboratory Results
Total Bilirubin 1.1 mg/dl (0.2-1.3) 01/09/25 10:24
AST 25 U/L (14-36) 01/09/25 10:24
ALT 24 U/L (0-35) 01/09/25 10:24
Alkaline Phosphatase 69 U/L (38-126) 01/09/25 10:24
Troponin I < 0.012 ng/ml 01/09/25 13:46
Data Reviewed
-
Diagnostic Radiology: Report Reviewed by me (CXR: 1. No acute pulmonary abnormality appreciated. 2. Bibasilar scarring, unchanged compared to prior chest x-ray.)
Medical Tests (Nuc Med, Echo, EKG etc): Report Reviewed by me (EKG: SINUS BRADYCARDIA WITH SINUS ARRHYTHMIA LEFT AXIS DEVIATION ANTERIOR INFARCT (CITED ON OR BEFORE 12-Oct-2023))
Lab Data: Labs Reviewed by me (trop 0.012, <0.012)
Impression/Plan
-
IMPRESSION/PLAN:
#chest pressure/tightness with shortness of breath 2/2 NSTEMI vs. unstable angina vs.
trop 0.012, <0.012
CXR: 1. No acute pulmonary abnormality appreciated.
2. Bibasilar scarring, unchanged compared to prior chest x-ray.
EKG: SINUS BRADYCARDIA WITH SINUS ARRHYTHMIA
LEFT AXIS DEVIATION
ANTERIOR INFARCT (CITED ON OR BEFORE 12-Oct-2023)
- Admit to IVU
- Consult Cardiology
- ECHO
- trend troponin
- IV heparin gtt
- NPO at midnight for labeler
#hypertension
- continue metoprolol
#hypercholesterolemia
- continue rosuvastatin
#hypothyroidism
- continue levothyroxine
#asthma
- continue albuterol and Advair
#GERD
- continue omeprazole
#anxiety/depression
- continue
Code status: full code
DVT prophylaxis: heparin gtt
--- NOTE | 2025-01-09 14:53 | W.PN.UPDATE ---
Update Note
Progress Note Update
This is an addendum to H&P written by ACCOUNTING MANAGER Sanjuana Mckinney
I saw and examined the patient.
The ACCOUNTING MANAGER's note was reviewed and I agree with the note.
Comment:
Ms. Annette Buckner is a 69 yo woman with hx asthma, essential HTN, HLD, hypothyroidism, GERD, DEBORAH presents to the ER with exertional chest pressure and shortness of breath.
Triage VS: T 97.5, P 56, RR 20, BP 155/78, SpO2 97%
On exam patient is AAO x 3, in no acute distress; CV: S1, S2, RRR; chest clear, no LE swelling
LABS: WBC 6.9, HG 15.5, PLT 235, Na 137, K+ 3.9, Cl 107, CO2 28, Cr 0.8, Glucose 103, T. Bili 1.1, AST 25, ALT 24, Alk Phos 69, Trop negative x 2
EKG with sinus bradycardia, poor R wave progression
CXR
IMPRESSION:
1. No acute pulmonary abnormality appreciated.
2. Bibasilar scarring, unchanged compared to prior chest x-ray.
Unstable Angina
-s/p aspirin, initiation of IV Heparin gtt
-admit to telemetry
-continue to trend Troponins
-daily aspirin, FRAUD PREVENTION ANALYST Metoprolol, statin
-F/U lipid panel, A1c
-NPO are MN for cardiac cath
-appreciate Cardiology consult
Essential HTN - FRAUD PREVENTION ANALYST metoprolol
Hyperlipidemia - FRAUD PREVENTION ANALYST statin
Hypothyroidism - FRAUD PREVENTION ANALYST Synthroid
Remainder of plan per ACCOUNTING MANAGER note
--- NOTE | 2025-01-09 14:54 | CON.CAR ---
Addendum entered and electronically signed by Zhou Francisco MD 01/09/25 16:36:
I saw and evaluated the patient, and I provided the substantive portion of the medical decision making.
I reviewed and agree with the note by Ms Liao and it accurately reflects our care.
I personally performed the medical decision making of the this encounter and my assessment and plan is below:
69 y/o female (patient of Dr. Jain) with asthma, HTN, HLD, palpitations, hypothyroidism, obesity, GERD, anxiety, and DEBORAH on CPAP who is here for evaluation of chest discomfort, which has worsened over the past week.
She describes symptoms of increasing chest pressure with less activity and assoc SOB.
This is concerning for accelerating angina.
Obtain Echo today
Cath tomorrow
EKG and trops if CP recurs
EKG tomorrow AM
Original Note:
Consultation
Consultation Request
Date/Time Consultation Requested: 01/09/25 1430
Date/Time Consultation Performed: 01/09/25 1445
Requesting Provider: Clark TORRES
Performing Provider: Shantelle LEDEZMA for Dr. Francisco
Reason for Consultation: chest discomfort
Medical History
-
Chief Complaint: chest discomfort
History of Present Illness:
69 y/o female (patient of Dr. Jain) with asthma, HTN, HLD, palpitations, hypothyroidism, obesity, GERD, anxiety, and DEBORAH on CPAP who is here for evaluation of chest discomfort, which has worsened over the past week. She noticed midsternal chest
pressure with associated SOB with stairs at first, but more frequently now. It can last hours at a time. She is in no distress at the time of my assessment and appears comfortable.
Past Medical History
Past Medical History: Asthma, GERD, HTN, Hypercholesterolemia, Hypothyroidism, Psychiatric (anxiety) and Other (DEBORAH on CPAP)
Social History
Tobacco: Non-Smoker
Alcohol: None
Family History
Family History: Early CAD (dad [place] age 41)
Allergies / Home Medications
Allergy/AdvReac Type Severity Reaction Status Date / Time
meperidine (From Demerol) Allergy 'severe Verified 01/09/25 09:21
nausea'
midazolam (From Versed) Allergy vomitting Verified 01/09/25 09:21
Penicillins Allergy Rash Verified 01/09/25 09:21
Sulfa (Sulfonamide Allergy Rash Verified 01/09/25 09:21
Antibiotics)
�Medication �Instructions �Recorded �Confirmed �Type
acetaminophen 325 mg tablet 650 mg (2 x 325 mg) PO Q4HPRN PRN 10/12/18 10/12/23 Rx
mild pain/fever
fluticasone propionate 115 2 puff inhalation R BID 10/12/18 10/12/23 Rx
mcg-salmeterol 21 mcg/actuation
HFA inhaler (Advair HFA)
levothyroxine 25 mcg tablet 12.5 mcg (1/2 x 25 mcg) PO DAILY 10/12/18 10/12/23 Rx
AT 0700
rosuvastatin 5 mg tablet 5 mg PO QPM 10/12/18 10/12/23 Rx
omeprazole 20 mg capsule,delayed 20 mg PO BIDPRN PRN GERD 02/03/19 10/12/23 History
release
metoprolol succinate 25 mg 25 mg PO DAILY #20 tabs 03/11/23 10/12/23 Rx
tablet,extended release 24 hr
calcium carbonate 500 mg PO DAILY Supplement 10/12/23 10/12/23 History
fexofenadine 180 mg tablet 180 mg PO HS Allergies 10/12/23 10/12/23 History
albuterol sulfate 90 mcg/actuation 2 puff inhalation Q6H PRN 10/13/23 Rx
aerosol inhaler (Ventolin HFA) shortness of breath or wheezing
#8.5 grams
aspirin 81 mg chewable tablet 81 mg PO DAILY #90 tabs 10/13/23 Rx
ipratropium 0.5 mg-albuterol 3 mg 3 ml inhalation R Q4HPRN PRN 10/13/23 Rx
(2.5 mg base)/3 mL nebulization shortness of breath/wheezing #180
soln mL
Review of Systems
-
History Source: Patient
All other systems: Negative unless noted
Respiratory: Trouble Breathing
Cardiac: Chest Pain
Physical Exam
Vital Signs
Temp Pulse Resp BP Pulse Ox
97.5 F 62 15 108/78 100
01/09/25 09:16 01/09/25 13:45 01/09/25 13:45 01/09/25 13:45 01/09/25 13:49
Lab Results
01/09/25 10:24
01/09/25 10:24
Troponin I < 0.012 ng/ml 01/09/25 13:46
Sns-G-Ashwklogxut Pept 46.7 pg/ml 01/09/25 10:24
Physical Exam
General: Well Developed, Well Nourished and No Apparent Distress
HEENT: Normocephalic and Anicteric
Respiratory: Clear and Non Labored Respirations
Cardiac: Regular Rhythm
Musculoskeletal: No Edema
Skin: Warm and Dry
Neuro: AO x 3
Psych: Calm
Impression / Plan
-
Chest discomfort/SOB:
-does not feel like her asthma or GERD. Trops okay.
-concerning for unstable angina, which is threat to life- risk factors include HTN, HLD, family history. Plan for cardiac cath tomorrow. NPO after MN.
-ASA 325 mg given- continue 81 mg daily
-check lipids and hgba1c
-start heparin drip, which requires intensive monitoring
-obtain echo
HTN:
-stable
-continue BB and montior
Dyslipidemia:
-continue statin and check lipids
DEBORAH:
-CPAP
GERD:
-on PPI
Obesity:
-she is working on weight loss and reports 10 lb weight loss so far. Continue weight loss efforts.
Data Reviewed
-
EKG: Tracing Personally Visualized and interpreted (SB at 57 BPM)
Radiology: Report Reviewed by me (CXR: 1. No acute pulmonary abnormality appreciated. 2. Bibasilar scarring, unchanged compared to prior chest x-ray.)
Medical Tests (Nuc Med, Echo etc): Report Reviewed by me (Echo 10/12/23: EF 55-60%, Mild concentric left ventricular hypertrophy, no significant valve disease)
Labs: Labs Reviewed by me
[2025-01-09] MEDS: HEPARIN 4000 UNITS IV (15:55)
[2025-01-09] MEDS: HEPARIN 25000 UNITS/250 ML IV (15:56)
[2025-01-09 16:04] LABS: APTT 26.4 Sec (23.4-35.0)
--- NOTE | 2025-01-09 18:55 | PTCARENOTE ---
Pt received from the ED at 1800. IV heparin infusing as ordered. Denies any chest pain or sob. Room air sat 97%. SB - SR, rate in the 40's to 60's.
[2025-01-09] MEDS: CRESTOR 5 MG PO (19:29)
[2025-01-09] MEDS: ZYRTEC 5 MG PO (19:29)
[2025-01-09] MEDS: LOW STRENGTH ASPIRIN 81 MG PO (19:30)
[2025-01-09] MEDS: ADVAIR HFA 115/21 MCG INHALER 2 PUFF INH (19:31)
--- NOTE | 2025-01-09 20:34 | PTCARENOTE ---
Pt rec'd at change of shift eating dinner. No c/o chest pressure or sob at present. heparin at 1000 units/hr. sinus shonda 40's on telemetry. Pt aware of npo status after mn
[2025-01-09 22:39] LABS: APTT 65.0 Sec (23.4-35.0)
[2025-01-09 22:53] LABS: Troponin I 0.017 ng/ml
[2025-01-10] VITALS (13 sets, daily range): BP systolic 86–135; BP diastolic 43–102
[2025-01-10] MEDS: SYNTHROID 12.5 MCG PO (04:46)
--- NOTE | 2025-01-10 05:05 | PTCARENOTE ---
Pt has remained cp free throughout the night. Npo for cath today
[2025-01-10 05:20] LABS: APTT 103.0 Sec (23.4-35.0)
[2025-01-10 05:42] LABS: Troponin I 0.013 ng/ml
[2025-01-10 06:02] LABS: HDL Cholesterol 50 mg/dl; LDL Cholesterol, Calculated 71 mg/dl; Very Low Density Lipoprotein 19 mg/dl (0-30)
--- NOTE | 2025-01-10 07:56 | W.PN.HOSP.TC ---
Today's Communication/Plan
-
Cardiac cath without cardiac etiology of her chest pain
CT Chest PE pending
Assessment / Plan
Assessment / Plan
Physical Exam
General: Not in acute distress
HEENT: Normocephalic, Moist mucous membranes
Respiratory: Clear to Auscultation Bilaterally
Cardiac: S1/S2 and Regular Rhythm
GI: Soft, Non Tender, Non Distended and Normal Bowel Sounds
Musculoskeletal: No Cyanosis and No Edema
Skin: Warm. Dry.
Neuro: Awake and AO x 3
Psych: Calm and Intact Judgment/Insight
Assessment/Plan
69-year-old female with past medical history of hypercholesterolemia, hypothyroidism, hypertension, asthma, GERD, anemia, DEBORAH and anxiety/depression who presented to [facility] ED for evaluation of exertional chest pressure and shortness of breath.
Patient reports that she has chdst pressure/tightness and shortness of breath with intermittent associated nausea for the past week with a significant increase in the last 2 days. She states that she has had some discomfort at rest but is mostly
when exertional. Denies fevers, chills, cough, vomiting or diarrhea.
Triage VS: T 97.5, P 56, RR 20, BP 155/78, SpO2 97%
On exam patient is AAO x 3, in no acute distress; CV: S1, S2, RRR; chest clear, no LE swelling
LABS: WBC 6.9, HG 15.5, PLT 235, Na 137, K+ 3.9, Cl 107, CO2 28, Cr 0.8, Glucose 103, T. Bili 1.1, AST 25, ALT 24, Alk Phos 69, Trop negative x 2
Initial EKG with sinus bradycardia, poor R wave progression
CXR
IMPRESSION:
1. No acute pulmonary abnormality appreciated.
2. Bibasilar scarring, unchanged compared to prior chest x-ray.
#Presentation with chest pressure/tightness with shortness of breath
- Previously received Aspirin and Heparin Drip
- Consult Cardiology
- Cardiac cath 01/10/25 with trivial luminal irregularities only in the left main system and mildly elevated LV filling pressure and no aortic stenosis
- I communicated with building carpenter Dr. Valadez who said that patient has normal coronary arteries, unclear what the etiology of patient's pain is but convincingly not related to heart failure or epicardial CAD
- Per Dr. Valadez, very little contrast was used for cath, and he said that it is reasonable to do a CT Chest PE study
#hypertension
- continue metoprolol
#hypercholesterolemia
- continue rosuvastatin at outpatient dose, no need to intensify as per building carpenter
#hypothyroidism
- continue levothyroxine
#asthma
- continue albuterol and Advair
#GERD
- continue omeprazole
#anxiety/depression
- continue
#DEBORAH
- Continue CPAP
Code status: full code
DVT prophylaxis: heparin gtt
Anticipated Discharge: Within 24 hours
Subjective/Interval History
-
Date of Service: January 10, 2025
Patient was seen and examined. She reported that her chest pain and shortness of breath have improved. She denied any other new symptoms or complaints.
Objective Data
-
Labs:
Laboratory Results
01/09/25 01/10/25 01/10/25
22:22 04:54 12:00
APTT 65.0 H 103.0 H Pending
Vital Signs:
Vital Signs
Temp Pulse Resp BP Pulse Ox
97.6 F 70 20 125/70 96
01/10/25 07:11 01/10/25 05:00 01/10/25 07:11 01/10/25 04:44 01/10/25 07:11
I&O
01/09/25 01/10/25 01/11/25
06:59 06:59 06:59
Intake Total 300 / 300
Balance 300 / 300
[2025-01-10] MEDS: ADVAIR HFA 115/21 MCG INHALER 2 PUFF INH (07:57)
[2025-01-10] MEDS: PROTONIX 40 MG PO (08:09)
[2025-01-10] MEDS: TOPROL XL 25 MG PO (08:09)
[2025-01-10 10:31] LABS: Glycohemoglobin (HgbA1c) 5.9 % (4.0-5.9)
[2025-01-10] MEDS: LOW STRENGTH ASPIRIN 81 MG PO (11:49)
--- NOTE | 2025-01-10 12:59 | W.PN.CD ---
Today's Communication / Plan
-
normal coronaries on [facility]
check CTPE
Impression / Plan
-
Chest discomfort/SOB:
-does not feel like her asthma or GERD. Detectable but below upper limit normal
-echo unremarkable
-cath today with normal left dominant coronary arteries, LVEDP mildly elevated (21 mmHg)
-no need for further ASA or heparin
-d/w hospitalist, will also check CTPE
HTN:
-stable
-continue BB and monitor
Dyslipidemia:
-given lack of CAD, no indication to intensify lipid lowering therapy at her age
DEBORAH:
-CPAP
GERD:
-on PPI
Obesity:
-she is working on weight loss and reports 10 lb weight loss so far. Continue weight loss efforts.
Physical Exam
Vital Signs/Labs
Vital Signs
Temp Pulse Resp BP Pulse Ox
36.4 C 53 20 107/80 95
01/10/25 11:14 01/10/25 11:45 01/10/25 11:14 01/10/25 11:14 01/10/25 11:14
01/09/25 01/10/25 01/11/25
06:59 06:59 06:59
Actual Weight 98.9 kg
01/09/25 10:24
01/09/25 10:24
APTT 103.0 Sec (23.4-35.0) H 01/10/25 04:54
Triglycerides 98 mg/dl (10-149) 01/10/25 04:54
LDL Cholesterol, Calc 71 mg/dl 01/10/25 04:54
VLDL Cholesterol, Calc 19 mg/dl (0-30) 01/10/25 04:54
HDL Cholesterol 50 mg/dl 01/10/25 04:54
01/09/25
10:24
Opo-F-Gjlzahpulcy Pept 46.7
LAB Results
01/09/25 01/09/25 01/09/25
10:24 13:46 17:51
Troponin I 0.012 < 0.012 Cancelled
01/09/25 01/09/25 01/10/25
22:22 23:51 04:54
Troponin I 0.017 Cancelled 0.013
Physical Exam
Constitutional: Comfortable
Cardiovascular: Rhythm & rate is regular
Respiratory: Respiratory effort normal
Neuro/Psych: AO x 3
Data Reviewed
-
Date of Service: January 10, 2025
Medical Decision Making: Reviewed Test Results
EKG: Tracing Personally Visualized and interpreted
Echo: Tracing Personally Visualized and interpreted
Labs: Labs Reviewed by me
--- NOTE | 2025-01-10 13:04 | ITS.CL.PN ---
[facility] - Procedure Note
Procedure
Procedure Note:
CARDIAC CATHETERIZATION REPORT
Date of Procedure: 01/10/2025
Referring: Dr. Zhou Francisco MD
Indication: ACS
PROCEDURE(S)
1. left heart catheterization
2. coronary angiography
ACCESS: 6F right radial artery (closure: radial band)
CATHETERS
1. 6F JR4
2. 6F JL4
MODERATE SEDATION: 25 minutes of moderate sedation was utilized. An independent emergency medical service manager was present to assist with and help manage the patient's level of consciousness and physiologic status.
HEMODYNAMIC DATA
LV 150/13 (EDP 21) mmHg
AO 150/85 (mean 104) mmHg
CORONARY ANGIOGRAPHY
Dominance: Right
LM: Large, normal
LAD: Large vessel giving rise to a small D1, small D2, and wrapping around the apex. There is mild ostial narrowing and otherwise no coronary artery disease.
LCx: Large vessel giving rise to a large branching OM1, several small LPL branches and a small LPDA. There is no disease.
RCA: Small nondominant vessel with no disease.
RADIATION: dose 293 mGy; DAP 15.9 Gy*cm2; fluoroscopy time 3.9 min
CONCLUSIONS
1. Trivial luminal irregularities only in the left main system.
2. Mildly elevated LV filling pressure and no aortic stenosis.
RECOMMENDATIONS
1. Primary prevention of coronary artery disease
2. Workup for etiology of atypical chest pain not related to epicardial coronary artery disease.
Copy to: Dr. Varinder Jain MD (mill operator); Dr. Radhames Woodson DO (PCP)
Signed: Robert Valadez MD, PhD
[2025-01-10] MEDS: NSS 1000 IV (13:38)
--- NOTE | 2025-01-10 14:00 | CM ---
Reviewed chart. Met with Mrs. Buckner to review discharge plans. She states prior to admission she reside with her spouse, daughter and grandson in a two story home with two steps to enter. She states she has a full flight of steps to get to bedroom/
She states she has a full bathroom on each level. She states prior to admission she was independent with ambulation and adls. She states she does not have any DME in the home. She states she has a prescription plan and uses [facility]. The
discharge plan is to return home with her spouse, daughter and grandson when medically stable.
[2025-01-10 15:11] LABS: Calcium 9.5 mg/dl (8.4-10.2); Carbon Dioxide 24 mmol/L (22-30); Chloride 106 mmol/L (98-107); Estimated Creatinine Clearance 72 ml/min; Glucose 85 mg/dl (70-99); Potassium 3.8 mmol/L (3.5-5.1); Sodium 135 mmol/L (135-145); eGFR > 60.00
[2025-01-10 15:24] LABS: Blood Urea Nitrogen 14 mg/dl (7-17)
--- NOTE | 2025-01-10 16:56 | PTCARENOTE ---
Pt had cardiac cath via right radial artery, radial band removed per protocol without problem. Dressing dry and intact, no sign of bleeding or hematoma. Pt continues to have brief episodes of SOB that resolve, patient taken for CT PE protocol.
[2025-01-10] MEDS: ZYRTEC PO (18:19)
[2025-01-10] MEDS: CRESTOR PO (18:19)
--- NOTE | 2025-01-10 19:02 | PTCARENOTE ---
Pt seen by . CT scan chest negative for PE. Pt walked around entire unit without a problem. Telemetry and IV device removed. Discharge instructions reviewed with pt regarding activity and driving instructions, wound care, medications and
their possible side effects, reporting cares and concerns and follow up appt's. Excellent understanding verbalized. Pt escorted out via wheelchair and discharged to home.
== END 2025-01-10 19:26 | disposition home or self-care (01) ==
LOC: IVU 15:59
PROVIDERS: Nurse Practitioner; Nurse Practitioner Family; Physician Assistant; ADMITTING PHYSICIAN Student in an Organized Health Care Education/Training Program; ATTENDING PHYSICIAN Hospitalist; CONSULT PHYSICIAN Internal Medicine Cardiovascular Disease; EMERGENCY PHYSICIAN Emergency Medicine; FAMILY PHYSICIAN Family Medicine
DX: R07.89 Other chest pain (principal); I10 Essential (primary) hypertension; G47.33 Obstructive sleep apnea (adult) (pediatric); J45.909 Unspecified asthma, uncomplicated; K21.9 Gastro-esophageal reflux disease without esophagitis; E66.9 Obesity, unspecified; E03.9 Hypothyroidism, unspecified; E78.00 Pure hypercholesterolemia, unspecified; F32.A Depression, unspecified; F41.9 Anxiety disorder, unspecified; Z79.82 Long term (current) use of aspirin; Z79.890 Hormone replacement therapy
CPT/HCPCS: 71046; 71275; 80048; 80053; 80061; 83036; 83880; 84484; 85025; 85730; 93005; 93306; 93458; 94640; 96365; 96366; 99152; 99153; 99285; C1769; C1894; G0378; Q9967